=== PATIENT | female | born 1955 | race Caucasian/White ===

== ENCOUNTER 2020-08-18 14:40 | Emergency (ER) | payer MEDICARE ==
[2020-08-18 15:03] VITALS: RESP 18; TEMP 97.8
[2020-08-18] MEDS ORDERED: MORPHINE SULFATE 4 MG/ML SYRINGE IVP STA (17:48)
--- NOTE | 2020-08-18 17:49 | ED ---
Fall HPI - General Chief Complaint: Fall Stated Complaint: fall, dizzziness Time Seen by Provider: 08/18/20 16:52 Source: patient Mode of arrival: ambulatory - History of Present Illness Initial Comments: Celia is a 65-year-old female who presents to the ER today for evaluation of head injury and left hip pain after fall yesterday. Patient reports that yesterday evening she was getting into the shower when she tripped over a rug. She fell landing on her left hip and striking her head. She did not lose consciousness. She states that today she was supposed to drive her daughter to [place] for medical appointment, she felt very dizzy and tired. Daughter reports that when he suffered lunch her mother was falling asleep able. Daughter was concerned mother may have a concussion in advised to come to ER for evaluation. The patient is not on any anticoagulant or antiplatelet medications. She was admitted to an outside hospital on Mother's Day for chest pain and evaluated with cardiac catheterization and stress test. She was advised that she has no significant cardiac anomalies. She was advised to continue her hydrochlorothiazide and propanolol 80 mg daily for hypertension. Patient states she's been on propanolol for a number of years without difficulty. She's never rinse told that she has a slow heart rate. - Related Data Allergies Allergy/AdvReac Type Severity Reaction Status Date / Time azithromycin Allergy Nausea & Verified 08/18/20 15:04 Vomiting Iodinated Contrast Media Allergy Rash/Hives Verified 08/18/20 15:04 Review of Systems ROS Statement: Those systems with pertinent positive or pertinent negative responses have been documented in the HPI. ROS Other: All systems not noted in ROS Statement are negative. Past Medical History Past Medical History: Hypertension History of Any Multi-Drug Resistant Organisms: None Reported Past Surgical History: Bladder Surgery, Cholecystectomy, Hernia Repair, Hysterectomy Past Psychological History: Depression Smoking Status: Former smoker Past Alcohol Use History: None Reported Past Drug Use History: None Reported General Exam - General Exam Comments Initial Comments: Physical Exam GENERAL: Patient is well-developed and well-nourished. Patient is nontoxic and well- hydrated and is in no distress. HENT: Normocephalic, Atraumatic. EYES: PERRL, EOMI PULMONARY: Unlabored respirations. No audible rales rhonchi or wheezing was noted. CARDIOVASCULAR: Bradycardic, regular ABDOMEN: Bruising of left lower quadrant of abdomen SKIN: Bruising of her left hip and thigh : Deferred NEUROLOGIC: Patient is alert and oriented x3. Moving all extremities spontaneously MUSCULOSKELETAL: Normal extremities with adequate strength and full range of motion. No lower extremity swelling or edema. No calf tenderness. PSYCHIATRIC: Normal psychiatric evaluation. Limitations: no limitations Course Vital Signs 08/18/20 08/18/20 14:59 19:11 Temperature 97.8 F Pulse Rate 50 L 62 Respiratory 18 18 Rate Blood Pressure 142/97 134/83 O2 Sat by Pulse 98 98 Oximetry Medical Decision Making - Medical Decision Making The patient was seen and evaluated, history is obtained from the patient and daughter bedside, patient had a mechanical trip and fall yesterday today she is having headache and some tiredness Head CT was negative for any acute intracranial findings X-ray of the hip where she had some bruising was negative for any fractures patient received pain medications while in the ER Patient was noted to be mildly bradycardic with heart rate in the 50 she is on beta blockers. She had no lightheadedness or hypotension in the emergency department, I advised her to hold her propanolol and follow with her primary care physician regarding her bradycardia patient was agreeable return parameters were discussed, concussion symptoms were discussed patient was discharged home in stable condition. - Lab Data Result diagrams: 08/18/20 17:57 08/18/20 17:57 Lab Results 08/18/20 08/18/20 Range/Units 17:57 17:57 WBC 6.8 (3.8-10.6) k/uL RBC 4.02 (3.80-5.40) m/uL Hgb 12.5 (11.4-16.0) gm/dL Hct 34.9 (34.0-46.0) % MCV 86.8 (80.0-100.0) fL MCH 31.0 (25.0-35.0) pg MCHC 35.7 (31.0-37.0) g/dL RDW 12.9 (11.5-15.5) % Plt Count 226 (150-450) k/uL MPV 6.8 Neutrophils % 54 % Lymphocytes % 35 % Monocytes % 4 % Eosinophils % 5 % Basophils % 1 % Neutrophils # 3.6 (1.3-7.7) k/uL Lymphocytes # 2.4 (1.0-4.8) k/uL Monocytes # 0.3 (0-1.0) k/uL Eosinophils # 0.4 (0-0.7) k/uL Basophils # 0.1 (0-0.2) k/uL Sodium 138 (137-145) mmol/L Potassium 3.6 (3.5-5.1) mmol/L Chloride 103 (98-107) mmol/L Carbon Dioxide 31 H (22-30) mmol/L Anion Gap 4 mmol/L BUN 14 (7-17) mg/dL Creatinine 1.04 (0.52-1.04) mg/dL Est GFR (CKD-EPI)AfAm 65 (>60 ml/min/1.73 sqM) Est GFR (CKD-EPI)NonAf 57 (>60 ml/min/1.73 sqM) Glucose 103 H (74-99) mg/dL Calcium 8.5 (8.4-10.2) mg/dL Magnesium 2.0 (1.6-2.3) mg/dL Total Bilirubin 0.2 (0.2-1.3) mg/dL AST 19 (14-36) U/L ALT 12 (4-34) U/L Alkaline Phosphatase 138 H (38-126) U/L Total Protein 5.8 L (6.3-8.2) g/dL Albumin 3.6 (3.5-5.0) g/dL TSH 2.510 (0.465-4.680) mIU/L - EKG Data -: EKG Interpreted by Tn EKG shows normal: sinus rhythm Rate: bradycardia EKG Comments: EKG was obtained due to bradycardia, EKG was obtained at 1526, rate is 50 rhythm is sinus bradycardia normal axis, normal intervals, UT 164, QRS and 6, QTC 423 there are no acute ST elevations or depressions there is no evidence of acute ischemia or infarction. Disposition Clinical Impression: Fall, Concussion, Contusion of left hip Disposition: HOME SELF-CARE Instructions (If sedation given, give patient instructions): Concussion (ED), Fall Prevention (ED) Is patient prescribed a controlled substance at d/c from ED?: No Referrals: Sofya Shook MD [Primary Care Provider] - 1-2 days
[2020-08-18 18:11] LABS: Basophils # (A) 0.1 k/uL (0-0.2); Basophils % (A) 1 %; Eosinophils # (A) 0.4 k/uL (0-0.7); Eosinophils % (A) 5 %; HCT 34.9 % (34.0-46.0); HGB 12.5 gm/dL (11.4-16.0); Lymphocytes # (A) 2.4 k/uL (1.0-4.8); Lymphocytes % (A) 35 %; MCHC 35.7 g/dL (31.0-37.0); MCV 86.8 fL (80.0-100.0); Mean Platelet Volume 6.8; Monocytes # (A) 0.3 k/uL (0-1.0); Monocytes % (A) 4 %; Neutrophils # (A) 3.6 k/uL (1.3-7.7); Neutrophils % (A) 54 %; Platelet Count 226 k/uL (150-450); RBC 4.02 m/uL (3.80-5.40); RDW 12.9 % (11.5-15.5); WBC 6.8 k/uL (3.8-10.6)
[2020-08-18 18:22] LABS: Albumin 3.6 g/dL (3.5-5.0); Calcium 8.5 mg/dL (8.4-10.2); Potassium 3.6 mmol/L (3.5-5.1); Total Bilirubin 0.2 mg/dL (0.2-1.3); Total Protein 5.8 g/dL (6.3-8.2)
--- NOTE | 2020-08-18 18:39 | CT ---
EXAMINATION TYPE: CT brain wo con DATE OF EXAM: 08/18/2020 COMPARISON: None HISTORY: Fall with head injury. Headache. CT DLP: 1099.4 mGycm Automated exposure control for dose reduction was used. There is mild cerebral atrophy. There is no mass effect nor midline shift. There is no sign of intrac ranial hemorrhage. The calvarium is intact. The skull base is intact. IMPRESSION: Cerebral atrophy. No acute intracranial abnormality.
--- NOTE | 2020-08-18 18:41 | XR ---
EXAMINATION TYPE: XR Hip Complete LT DATE OF EXAM: 08/18/2020 COMPARISON: NONE HISTORY: Pain TECHNIQUE: 2 views FINDINGS: I see no fracture nor dislocation. Hip joint space is fairly normal. There is no hip dyspla leon. IMPRESSION: Negative left hip exam. No fracture.
[2020-08-18 19:13] VITALS: BP 134/83; PULSE 62
[2020-08-18] MEDS ORDERED: ACET/COD 300 MG/30 MG STARTER PACK 6 TAB BTL PO STA (20:27)
== END 2020-08-18 20:40 | disposition home or self-care (01) ==
LOC: EC 14:40
DX: S06.0X9A Concussion with loss of consciousness of unspecified duration, initial encounter (principal); S70.02XA Contusion of left hip, initial encounter; I10 Essential (primary) hypertension; F32.9 Major depressive disorder, single episode, unspecified; Z87.891 Personal history of nicotine dependence; W01.198A Fall on same level from slipping, tripping and stumbling with subsequent striking against other object, initial encounter; Y93.E1 Activity, personal bathing and showering
CPT/HCPCS: 36415; 93005; 80053; 84443; 83735; 85025; 73502; 70450; 99285; 96374; J2270

== ENCOUNTER → 2021-12-04 | Outpatient (CLI) | payer MEDICARE ==
--- NOTE | 2021-12-04 09:20 | MR ---
EXAMINATION TYPE: MR angio head/neck wo con DATE OF EXAM: 12/04/2021 COMPARISON: MRI brain February 09, 2011 HISTORY: VASCULAR HEADACHE TECHNIQUE: Time of flight images focusing on the [place] of [place] were performed without contrast.. 2-D and 3-D postprocessing imaging is performed on a MRI scanner. MRA of the neck without contrast. FINDINGS: There are codominant vertebral arteries patent to the basilar junction. There are small minnie iber but patent bilateral posterior communicating arteries. No significant focal stenosis or aneurysm in the posterior circulation is identified. Images of the anterior circulation show patent anterior communicating artery. There is no significant focal stenosis or aneurysm in the anterior circulation. Images of the neck is suboptimal without IV contrast. There is tortuous medial course to the proximal internal carotid arteries bilaterally identified. No hemodynamically significant stenosis is clearly seen near level of carotid bulbs. Proximal portion of the common carotid arteries are not evaluated or degraded by artifact. IMPRESSION: 1. No significant stenosis or aneurysm at the level of the [place] of [place]. 2. Suboptimal study without significant stenosis in either carotid or internal carotid artery in the region of the carotid bulbs.
== END | disposition home or self-care (01) ==
LOC: RADMRIMAIN 05:50
PROVIDERS: ATTEND Internal Medicine
DX: G44.1 Vascular headache, not elsewhere classified (principal)
CPT/HCPCS: 70544; 70547

== ENCOUNTER → 2021-12-21 | Outpatient (CLI) | payer MEDICARE ==
--- NOTE | 2021-12-21 09:29 | US ---
EXAMINATION TYPE: US liver DATE OF EXAM: 12/21/2021 COMPARISON: NONE CLINICAL HISTORY: R79.89 ABNORMAL FINDINGS OF BLOOD CHEMISTRY. TECHNIQUE: Multiple sonographic images of the right upper quadrant are obtained. FINDINGS: EXAM MEASUREMENTS: Liver Length: 12.8 cm Gallbladder Wall: Surgically absent CBD: 1.10 cm Right Kidney: 10.2 x 4.3 x 3.8 cm Pancreas: Tail obscured by overlying bowel gas Liver: Increased attenuation, decreased visualization of vessels suggestive of fatty infiltrate Gallbladder: Surgically absent Evidence for sonographic Dong's sign: No CBD: Dilated Right Kidney: wnl IMPRESSION: 1. Hepatocellular disease commonly related to hepatic steatosis. 2. Dilation of the common bile duct which can be seen in post cholecystectomy physiology.
== END | disposition home or self-care (01) ==
LOC: RADUSWWP 07:36
PROVIDERS: ATTEND Internal Medicine
DX: K76.0 Fatty (change of) liver, not elsewhere classified (principal); K83.8 Other specified diseases of biliary tract; R79.89 Other specified abnormal findings of blood chemistry; Z90.49 Acquired absence of other specified parts of digestive tract
CPT/HCPCS: 76705

== ENCOUNTER → 2024-03-23 | Outpatient (CLI) | payer MEDICARE ==
--- NOTE | 2024-03-24 07:48 | MR ---
EXAMINATION TYPE: MR brain wo/w con DATE OF EXAM: 03/23/2024 7:53 PM COMPARISON: CT brain 08/18/2020 CLINICAL INDICATION: Female, 68 years old with history of I67.82 CEREBRAL ISCHEMIA, Ischemic brain da mage, Fell and hit head 01-31-2024, Numbness RT side of head, TECHNIQUE: Multiplanar, multiecho imaging on a 3.0 [place] magnet is performed through the brain. Stud y is performed within 24 hours of arrival to the hospital.Multiplanar, multiecho imaging on a 3.0 [place] magnet is performed through the knee. IV Contrast: 11.5 mL Gadobutrol (None, if empty) FINDINGS: The craniovertebral junction is normal. The pituitary is normal. Diffusion-weighted imaging is performed. No abnormal hyperintensity is present to suggest an acute i ntracranial infarct or acute ischemic change. There are scattered punctate areas of hyperintensity on T2 and Inversion Recovery weighted sequences within the subcortical, periventricular and deep white matter which are non-specific but can be relat ed to microvascular ischemic changes. Differential diagnosis would include vasculitis, multiple scler osis, Lyme disease. Ventricles and sulci are appropriate for the patient age. No suspicious enhancement is evident. IMPRESSION: 1. Chronic appearing periventricular white matter ischemic-type changes [facility], Workstation: [facility], 03/24/2024 7:46 AM
== END | disposition home or self-care (01) ==
LOC: RADMRIMAIN 18:39
PROVIDERS: ATTEND Internal Medicine
DX: I67.82 Cerebral ischemia (principal); R90.82 White matter disease, unspecified
CPT/HCPCS: 70553; A9585